=== PATIENT | male | born 2000 | race Asian ===

== ENCOUNTER 2021-06-30 19:21 | Emergency (ER) | payer OTHER ==
[~2021-06-30] VITALS: Ht 165.1 cm; Wt 63.5 kg
[2021-06-30 19:29] VITALS: BP 148/84
--- NOTE | 2021-06-30 19:41 | NUR ---
PT AMBULATED TO BED #8
--- NOTE | 2021-06-30 19:44 | NUR ---
SAMMY MCGUIRE AT BEDSIDE FOR EVALUATION
[2021-06-30] MEDS ORDERED: TETRACAINE HCL/PF 0.5% OPTH 4 ML BTL OP ONE (19:45)
[2021-06-30] MEDS ORDERED: FLUORESCEIN OPTH STRIP 1 MG OP ONE (19:45)
[2021-06-30] MEDS ORDERED: [UNRECOGNIZED DRUG - CODE] OP (19:57)
--- NOTE | 2021-06-30 20:00 | NUR ---
Patient discharged with v/s stable. Written and verbal after care instructions given and explained. Patient alert, oriented and verbalized understanding of instructions. Ambulatory with steady gait. All questions addressed prior to discharge. ID band removed. Patient advised to follow up with PMD. Rx of CILOXAN given. Opportunity to ask questions provided and answered.
[2021-06-30 20:06] VITALS: BP 148/84
--- NOTE | 2021-06-30 20:24 | NUR ---
The patient's care was reviewed and supervised by Lucía Rubi RN.
== END 2021-06-30 20:00 | disposition home or self-care (01) ==
LOC: MED 19:21
DX: S05.02XA Injury of conjunctiva and corneal abrasion without foreign body, left eye, initial encounter (principal); Z79.899 Other long term (current) drug therapy; X58.XXXA Exposure to other specified factors, initial encounter; Y93.89 Activity, other specified; Y92.89 Other specified places as the place of occurrence of the external cause; Y99.8 Other external cause status
CPT/HCPCS: 99283